=== PATIENT | male | born 1990 | race Two or more races ===

== ENCOUNTER 2021-08-12 12:53 | Emergency (ER) | payer OTHER ==
[~2021-08-12] VITALS: Ht 167.6 cm; Wt 79.4 kg
[2021-08-12] MEDS ORDERED: TAMS0.4C PO (16:43)
[2021-08-12] MEDS ORDERED: CIPRO500 MG PO (16:43)
[2021-08-12] MEDS ORDERED: KETO10TA2 PO (16:43)
== END 2021-08-12 16:56 | disposition home or self-care (01) ==
LOC: ER 12:53
DX: R10.9 Unspecified abdominal pain (principal)

== ENCOUNTER 2022-10-15 14:33 | Outpatient (CLI) | payer OTHER ==
[~2022-10-15 14:33] MED LIST: CIPRO500 MG PO; KETO10TA2 PO; TAMS0.4C PO
== END 2022-10-15 14:40 | disposition home or self-care (01) ==
LOC: RAD 14:33
DX: J06.9 Acute upper respiratory infection, unspecified (principal); J44.9 Chronic obstructive pulmonary disease, unspecified

== ENCOUNTER 2022-11-10 09:37 | Outpatient (CLI) | payer OTHER | END 2022-11-10 09:44 | disposition home or self-care (01) | LOC: TOM 09:37 | DX: R09.1 Pleurisy (principal); R09.02 Hypoxemia ==

== ENCOUNTER → 2023-07-17 | Outpatient (CLI) | payer OTHER | END | disposition home or self-care (01) | LOC: RAD 10:12 | PROVIDERS: ATTEND Physical Medicine & Rehabilitation | DX: M54.50 Low back pain, unspecified (principal) ==

== ENCOUNTER 2023-07-24 10:24 | Outpatient (CLI) | payer OTHER | END 2023-07-24 10:43 | disposition home or self-care (01) | LOC: SONOGRAMA 10:24 | PROVIDERS: ATTEND Internal Medicine Endocrinology, Diabetes & Metabolism | DX: E04.1 Nontoxic single thyroid nodule (principal) ==

== ENCOUNTER 2024-05-13 08:26 | Outpatient (CLI) | payer OTHER | END 2024-05-13 08:31 | disposition home or self-care (01) | LOC: RAD 08:26 | DX: J45.40 Moderate persistent asthma, uncomplicated (principal); J20.9 Acute bronchitis, unspecified ==